=== PATIENT | male | born 1980 | race Caucasian/White ===

== ENCOUNTER 2017-04-26 00:32 | Emergency (ER) | payer OTHER ==
[~2017-04-26] VITALS: Ht 177.8 cm; Wt 72.6 kg
--- NOTE | 2017-04-26 00:53 | NUR ---
To bed 8 a 36 yo male bibself w c/o allergic reaction to dairy x 1.5 hours ago, hives, appears flushed. No sob noted. breathing even and unalbored. vss. nondiaphoretic. placed on cardiac and vs monitor. Dr Burnett at bedside to [facility] [address] [facility].
[2017-04-26] MEDS ORDERED: DEXAMETHASONE SOD PHOSPHATE 10 MG/ML VIAL IV ONE (01:00)
[2017-04-26] MEDS ORDERED: FAMOTIDINE/PF INJ 20 MG/2 ML VIAL IV ONE ×2 (01:00→01:04)
[2017-04-26] MEDS ORDERED: diphenhydrAMINE HCL 50 MG/ML VIAL IV ONE (01:00)
[2017-04-26] MEDS ORDERED: EPINEPHRINE (1:1000) 1 MG/ML AMPUL ONE (01:00)
[2017-04-26] MEDS ORDERED: ONDANSETRON HCL/PF 4 MG/2 ML VIAL IVP ONE (01:00)
[2017-04-26] MEDS ORDERED: EPINEPHRINE (1:1000) MDV 30 MG/30ML VIAL IM ONE (01:00)
[2017-04-26] MEDS ORDERED: ONDANSETRON HCL/PF 4 MG/2 ML VIAL ONE (01:04)
[2017-04-26] MEDS ORDERED: DEXAMETHASONE SOD PHOSPHATE 10 MG/ML VIAL ONE (01:04)
[2017-04-26] MEDS ORDERED: diphenhydrAMINE HCL 50 MG/ML VIAL ONE (01:04)
--- NOTE | 2017-04-26 01:14 | NUR ---
medicated patient as ordered by Dr Burnett.
--- NOTE | 2017-04-26 03:00 | NUR ---
Dr Burnett talking to patient, patient decided to leave ama after being explained with the risks and benefits. AMA formed signed.
--- NOTE | 2017-04-26 03:08 | NUR ---
IV removed. Catheter intact and site benign. Pressure and 4x4 applied to site. No bleeding noted. Patient discharged to home in stable condition. Written and verbal after care instructions given. Patient verbalizes understanding of instruction. Patient is ambulatory with steady gait, Instructed not to drive. No further complaints.
[2017-04-26 03:10] VITALS: BP 110/70
== END 2017-04-26 03:10 | disposition left against medical advice (07) ==
LOC: ER 00:34
DX: T78.2XXA Anaphylactic shock, unspecified, initial encounter (principal); Z91.011 Allergy to milk products; Z91.018 Allergy to other foods
CPT/HCPCS: A4606; J0171; J1100; J1200; J2405; J3490; Z7610

== ENCOUNTER 2017-05-21 15:33 | Emergency (ER) | payer OTHER ==
[~2017-05-21] VITALS: Ht 177.8 cm; Wt 74.8 kg
--- NOTE | 2017-05-21 15:50 | NUR ---
PATIENT PRESENT TO ER C/O ALLERGIC REACTION AFTER EATING MEAL. PATIENT ALLERGIC TO DAIRY, BUT UNAWARE WHAT IS CAUSING REACTION. PATIENT HAS GENERALIZED REDNESS ALL OVER, BUT NO SOB. VITALS STABLE. SAFETY AND COMFORT MEASURES IN PLACE. AWAITING MD ORDERS.
--- NOTE | 2017-05-21 16:10 | NUR ---
NEW IV STARTED ON R HAND, 20 G.
[2017-05-21] MEDS ORDERED: diphenhydrAMINE HCL 50 MG/ML VIAL ONE (16:11)
[2017-05-21] MEDS ORDERED: FAMOTIDINE/PF INJ 20 MG/2 ML VIAL IV ONE ×2 (16:11→16:30)
--- NOTE | 2017-05-21 16:15 | NUR ---
PATIENT MEDICATED PER MD ORDERS.
[2017-05-21] MEDS ORDERED: diphenhydrAMINE HCL 50 MG/ML VIAL IV ONE (16:30)
--- NOTE | 2017-05-21 17:30 | NUR ---
IV removed. Catheter intact and site benign. Pressure and 4x4 applied to site. No bleeding noted. Patient discharged to home in stable condition. Written and verbal after care instructions given. Patient verbalizes understanding of instruction.
[2017-05-21 17:35] VITALS: BP 128/82
== END 2017-05-21 17:36 | disposition home or self-care (01) ==
LOC: ER 15:35
DX: T78.40XA Allergy, unspecified, initial encounter (principal); Y92.89 Other specified places as the place of occurrence of the external cause
CPT/HCPCS: 96374; 96375; 99284; A4606; J1200; J3490; Z7610

== ENCOUNTER 2019-01-24 18:15 | Emergency (ER) | payer BC, OTHER ==
[~2019-01-24] VITALS: Ht 177.8 cm; Wt 79.4 kg
[2019-01-24] MEDS ORDERED: EPINEPHRINE (1:1000) 1 MG/ML AMPUL ONE ×2 (18:20→18:25)
--- NOTE | 2019-01-24 18:20 | NUR ---
BIB SELF FROM HOME. AAOX4. NO SOB, BREATHING EVEN AND UNLABORED. AMBULATORY. C/O ALLERGIC REACTION. PT IS ALLERGIC TO MILK AND GOT EXPOSED TO ALLERGEN. PT HAS GENERALIZED BODY REDNESS, PROMINENT ON THE FACE, BIKLAT UPPER EXT AND UPPER BODY. PT REPORT BEING EXPOSED TO ALLERGEN 45 MIN AGO. -N/V/D. TO ER BED 2. PLACED ON MONITOR. MD AT BEDSIDE. AWATING ORDERS
[2019-01-24] MEDS ORDERED: diphenhydrAMINE HCL 50 MG/ML VIAL ONE (18:29)
[2019-01-24] MEDS ORDERED: methylPREDNISolone SOD SUCC 125 MG/2ML VIAL ONE (18:29)
[2019-01-24] MEDS ORDERED: FAMOTIDINE/PF INJ 20 MG/2 ML VIAL IV ONE ×2 (18:29→18:30)
[2019-01-24] MEDS ORDERED: methylPREDNISolone SOD SUCC 125 MG/2ML VIAL IV ONE (18:30)
[2019-01-24] MEDS ORDERED: diphenhydrAMINE HCL 50 MG/ML VIAL IV ONE (18:30)
[2019-01-24] MEDS ORDERED: EPINEPHRINE (1:1000) MDV 30 MG/30ML VIAL SUBCUT ONE (18:30)
[2019-01-24] MEDS ORDERED: IV NS 0.9% 1,000 ML BAG IV ONE (18:30)
--- NOTE | 2019-01-24 21:35 | NUR ---
Patient discharged to home in stable condition. Written and verbal after care instructions given. Patient verbalizes understanding of instruction.IV removed. Catheter intact and site benign. Pressure and 4x4 applied to site. No bleeding noted. Pt ambulatory with a steady gait
[2019-01-24 21:36] VITALS: BP 143/91
== END 2019-01-24 21:37 | disposition home or self-care (01) ==
LOC: ER 18:15
DX: T78.2XXA Anaphylactic shock, unspecified, initial encounter (principal); Z91.018 Allergy to other foods; Z91.011 Allergy to milk products
CPT/HCPCS: 96372; 96374; 96375; 99283; J0171 ×3; J1200; J2930; J3490; J7030